=== PATIENT | female | born 1980 | race Caucasian/White ===

== ENCOUNTER 2018-08-03 08:15 | Emergency (ER) | payer OTHER ==
[2018-08-03 08:48] VITALS: BP 130/84; PULSE 94; TEMP 99.3; BMI 32.9
[2018-08-03] MEDS ORDERED: KETOROLAC TROMETHAMINE 60 MG/2 ML VIAL ONE (08:54)
[2018-08-03] MEDS ORDERED: predniSONE 20 MG TABLET (UD) ONE (08:55)
[2018-08-03] MEDS ORDERED: diazePAM 5 MG TABLET ONE (08:55)
--- NOTE | 2018-08-03 09:18 | PDOC ---
History of Present Illness - General Chief Complaint: Pain Stated Complaint: LEG PAIN Time Seen by Provider: 08/03/18 08:45 History Source: Patient Exam Limitations: No Limitations - History of Present Illness Initial Comments: 08/03/18 09:25 Came to emergency department with complaints of worsening right low back pain that has and present on and off for the past one month. States 2 weeks ago was seen and treated by her private physician with cyclobenzaprine and NSAIDs which significantly improved her back pain. However since that time did significant heavy lifting and exercise over the which really exacerbated and worsened her low back pain. States is out of cyclobenzaprine and pain/spasm is escalating 08/03/18 09:26 Occurred: reports: yesterday Severity: reports: moderate, severe Pain Location: reports: back, lower extremity Method of Injury: Yes: unknown Modifying Factors: improves with: pain medication Loss of Consciousness: no loss of consciousness Associated Symptoms (Fall): denies symptoms Past History - Travel Traveled outside of the country in the last 30 days: No Close contact w/someone who was outside of country & ill: No - Past Medical History Allergies/Adverse Reactions: Allergies Allergy/AdvReac Type Severity Reaction Status Date / Time No Known Allergies Allergy Verified 08/03/18 08:48 Home Medications: Ambulatory Orders Amlodipine Besylate [Norvasc -] 5 mg PO DAILY 08/03/18 Cyclobenzaprine HCl 10 mg PO Q8H PRN #14 tablet 08/03/18 Cyclobenzaprine HCl [Flexeril -] 10 mg PO HS 08/03/18 Dextroamphetamine/Amphetamine [Adderall 10 mg Tablet] 10 mg PO DAILY 08/03/18 Naproxen [Naprosyn -] 500 mg PO BID 08/03/18 Naproxen [Naprosyn -] 500 mg PO BID #30 tablet 08/03/18 predniSONE [Deltasone -] 20 mg PO BID #8 tablet 08/03/18 COPD: No CHF: No - Suicide/Smoking/Psychosocial Hx Smoking History: Current every day smoker Number of Cigarettes Smoked Daily: 20 Information on smoking cessation initiated: No Hx Alcohol Use: No Drug/Substance Use Hx: No Substance Use Type: None Review of Systems - Review of Systems Able to Perform ROS?: Yes Is the patient limited [place] proficient: Yes Constitutional: Yes: Symptoms Reported, See HPI, Malaise HEENTM: No: Symptoms Reported Respiratory: No: Symptoms reported Musculoskeletal: Yes: Symptoms Reported, See HPI, Back Pain, Muscle Pain, Muscle Weakness All Other Systems: Reviewed and Negative *Physical Exam - Vital Signs Last Vital Signs Temp Pulse Resp BP Pulse Ox 99.3 F 94 H 16 130/84 100 08/03/18 08:20 08/03/18 08:20 08/03/18 08:20 08/03/18 08:20 08/03/18 08:20 - Physical Exam General Appearance: Yes: Nourished, Appropriately Dressed, Apparent Distress, Moderate Distress, Severe Distress HEENT: positive: ROSSY, Normal ENT Inspection, TMs Normal, Pharynx Normal Neck: positive: Supple. negative: Tender, Trachea midline, Lymphadenopathy (R) , Lymphadenopathy (L) Respiratory/Chest: positive: Lungs Clear, Normal Breath Sounds Gastrointestinal/Abdominal: positive: Soft Musculoskeletal: positive: Decreased Range of Motion, Muscle Spasm (severe intense tight musculature to the paravertebral spinous muscles to the right side extending from spine and into right gluteus and down posterior aspect of right leg. Has no true bone tenderness, crepitus or step-offs. However range of motion is extremely limited secondary to this exquisite pain and sciatic nerve distribution). negative: Normal Inspection, CVA Tenderness, Vertebral Tenderness Extremity: positive: Normal Inspection. negative: Normal Capillary Refill, Normal Range of Motion (limited due to ) Integumentary: positive: Normal Color, Dry, Warm Neurologic: positive: control supervisor II-XII NML intact, Fully Oriented, Alert, Normal Mood/ Affect, Normal Response, Motor Strength 5/5 Progress Note - Progress Note Progress Note: Much improved after medications, has arrived and is ready for discharge *DC/Admit/Observation/Transfer Diagnosis at time of Disposition: Spasm of back muscles - Discharge Dispostion Disposition: HOME Condition at time of disposition: Stable Decision to Admit order: No - Prescriptions Prescriptions: Cyclobenzaprine HCl 10 mg PO Q8H PRN #14 tablet PRN Reason: spasm Naproxen [Naprosyn -] 500 mg PO BID #30 tablet predniSONE [Deltasone -] 20 mg PO BID #8 tablet - Referrals Referrals: Mary Alice Escalante MD [Primary Care Provider] - - Patient Instructions Printed Discharge Instructions: DI for Back Spasm Additional Instructions: Rest, no heavy lifting or exercise until pain is resolved Hot soaks to neck and low back as often as possible/hot showers or Jacuzzis No massage or therapy until spasm is gone Continue Naprosyn 500 mg tablet, 1 tablet every 12 hours for the next 3 days then as needed for pain and swelling Cyclobenzaprine 1-10mg every 8 hours as needed for spasm Prednisone 40 mg for the next 4 days starting tomorrow If not significant improvement within 24 hours with medication and rest regime, followup with private physician for change in medications and /or therapy. - Post Discharge Activity Forms/Work/School Notes: Back to Work
[2018-08-03] MEDS ORDERED: KETOROLAC TROMETHAMINE 60 MG/2 ML VIAL IM ONE (09:19)
[2018-08-03] MEDS ORDERED: diazePAM 5 MG TABLET PO ONE (09:19)
[2018-08-03] MEDS ORDERED: predniSONE 20 MG TABLET (UD) PO ONE (09:19)
== END 2018-08-03 10:31 | disposition home or self-care (01) ==
LOC: JER 08:15
PROC: 3E0233Z Introduction of Anti-inflammatory into Muscle, Percutaneous Approach (ICD-10-PCS; principal; 2018-08-03)
DX: M62.830 Muscle spasm of back (principal)
CPT/HCPCS: 99282-25